=== PATIENT | male | born 2000 | race African-American/Black ===

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

== ENCOUNTER 2019-12-10 12:13 | Emergency (ER) | payer SELFPAY ==
[2019-12-10] MEDS ORDERED: cefTRIAXone\\ROCEPHIN 250 MG VIAL ONE (12:54)
[2019-12-10] MEDS ORDERED: Azithromycin 250 MG TAB ONE (12:54)
[2019-12-10] MEDS ORDERED: Lidocaine 1% (PF) 30 ML VIAL ONE (12:54)
[2019-12-10 13:43] LABS: Bilirubin Negative (Negative); Blood, Urine Negative (Negative); Clarity Clear (Clear); Glucose, Urine (Dipstick) Normal (Negative); Ketone, Urine Negative (Negative); Leukocyte 500 Leu/uL (Negative); Mucous/LPF Rare LPF (<2+); Nitrite Negative (Negative); Protein, Urine (Dipstick) 20 mg/dL (Neg-Trace); Squamous Epithelial 0-3 HPF (0-3); Urobilinogen 3 mg/dL (Less than 2); WBC/HPF Greater than 50 HPF (0-3); pH, Urine 6.5 (5.0-9.0)
[2019-12-10 13:44] LABS: Bacteria/HPF 1+ HPF (None Seen)
[2019-12-11 22:55] LABS: Chlam.trachomatis by PCR,Urine DETECTED (NotDetected)
== END 2019-12-10 13:59 | disposition home or self-care (01) ==
LOC: ERS 12:13
DX: A64 Unspecified sexually transmitted disease (principal); N39.0 Urinary tract infection, site not specified; F31.9 Bipolar disorder, unspecified
CPT/HCPCS: 81003; 81015; 87491; 87591; 96372; 99283; J0696; J2001

== ENCOUNTER 2022-06-02 02:52 | Inpatient (IN) | payer SELFPAY ==
[2022-06-02] MEDS ORDERED: Morphine 4 MG/ML VIAL ONE (03:11)
[2022-06-02] MEDS ORDERED: Dextrose 50% Abboject 50 ML SYRINGE SLOW IVP PRN (03:45)
[2022-06-02] MEDS ORDERED: Ondansetron PF 4 MG/2 ML Vial IVP PRN (03:45)
[2022-06-02] MEDS ORDERED: Dextrose 5% in Water 1,000 ML IV PRN (03:45)
[2022-06-02] MEDS ORDERED: TETANUS, DIPHTHERIA TOX,ADULT (TDVAX) 0.5 ML VIAL IM ONE (03:45)
[2022-06-02] MEDS ORDERED: Ondansetron ODT 4 MG TAB PO PRN (03:45)
[2022-06-02] MEDS ORDERED: Sodium Chloride 0.9% 1,000 ML IV SCH (03:45)
[2022-06-02 03:50] LABS: #Basophils 0.1 thou/uL (0.0-0.2); #Lymphocytes 0.9 thou/uL (1.20-3.40); #Monocytes 0.9 thou/uL (0.11-0.59); #Neutrophils 15.3 thou/uL (1.40-6.50); %Basophils 0.3 % (0.0-1.0); %Eosinophils 0.1 % (0.0-10.0); %Monocytes 5.2 % (0.0-10.0); %Neutrophils 89.3 % (42.0-75.0); Hemoglobin 14.9 g/dL (14.0-18.0); Mean Corpuscular HGB CONC 33.1 g/dL (32.0-36.0); Mean Corpuscular Hemoglobin 30.7 pg (27.0-31.0); Mean Corpuscular Volume 92.8 fl (78.0-98.0); Mean Platelet Volume 7.5 fL (7.4-10.4); Platelet Count 218 10x3/uL (130-400); RBC Distribution Width 11.3 % (11.5-14.5); Red Blood Cell (RBC) Count 4.85 mill/uL (4.70-6.10); White Blood Cell (WBC) Count 17.2 10x3/uL (4.8-10.8)
[2022-06-02] MEDS ORDERED: traMADol HCl 50 MG TAB PO PRN (03:51)
[2022-06-02 04:01] LABS: ALT (SGPT) 12 U/L (8-55); AST (SGOT) 24 U/L (5-34); Alkaline Phosphatase 70 U/L (40-110); Anion Gap 15 mmol/L (10-20); BUN (Urea Nitrogen) 13 mg/dL (8.9-20.6); Bilirubin, Total 0.3 mg/dL (0.2-1.2); Calc. Creatinine Clearance 0 mL/min (70-130); Calcium 8.8 mg/dL (7.8-10.44); Carbon Dioxide 21 mmol/L (22-29); Chloride 104 mmol/L (98-107); Estimated GFR 116; Glucose 118 mg/dL (70-105); Potassium 3.5 mmol/L (3.5-5.1); Sodium 136 mmol/L (136-145)
[2022-06-02 04:02] LABS: INR-International Normal Ratio 0.9
[2022-06-02 04:03] LABS: PTT 26.9 sec (22.9-36.1)
[2022-06-02 04:25] LABS: SARS-CoV-2 NAA Rapid Test Not Detected (NotDetected)
[2022-06-02] MEDS: Acetaminophen 500 MG TAB PO SCH ×3 (05:13→17:35)
[2022-06-02] MEDS: Ibuprofen 600 MG TAB PO SCH ×3 (05:13→17:34)
[2022-06-02] MEDS: Morphine 2 MG/ML VIAL SLOW IVP PRN ×2 (05:14→05:48)
[2022-06-02 05:41] VITALS: BMI 19.0
[2022-06-02] MEDS: traMADol HCl 50 MG TAB PO SCH ×3 (07:34→17:34)
[2022-06-02] MEDS ORDERED: CEFAZOLIN 1 GM VIAL SLOW IVP SCH (08:00)
[2022-06-02] MEDS ORDERED: Morphine 4 MG/ML VIAL SLOW IVP PRN (08:03)
[2022-06-02] MEDS ORDERED: Sodium Chloride 0.9% 100 ML ONE (08:04)
[2022-06-02] MEDS ORDERED: CEFAZOLIN 1 GM VIAL ONE (08:04)
[2022-06-02] MEDS ORDERED: Fentanyl 100 MCG/2 ML VIAL ONE (08:25)
[2022-06-02] MEDS ORDERED: Fentanyl 250 MCG/5 ML VIAL ONE (08:44)
[2022-06-02] MEDS ORDERED: Lidocaine 1% PF 5 ML VIAL ONE (08:56)
[2022-06-02] MEDS ORDERED: Ondansetron PF 4 MG/2 ML Vial ONE (08:56)
[2022-06-02] MEDS ORDERED: Dexamethasone 20 MG/5 ML VIAL ONE (08:56)
[2022-06-02] MEDS ORDERED: PHENYLEPHRINE-NS 100 MCG/ML 10 ML SYRINGE ONE (08:56)
[2022-06-02] MEDS ORDERED: PROPOFOL 200 MG/20 ML VIAL ONE (08:56)
[2022-06-02] MEDS ORDERED: HYDROmorphone 0.5 MG/0.5 ML SYRINGE ONE (09:01)
[2022-06-02] MEDS ORDERED: Ketamine 50 MG/ML (10ML VIAL) ONE (09:02)
[2022-06-02] MEDS ORDERED: Dexmedetomidine 200 MCG/2 ML VIAL ONE (09:02)
[2022-06-02] MEDS ORDERED: HYDROmorphone 2 MG/ML VIAL SLOW IVP PRN (09:53)
[2022-06-02] MEDS ORDERED: Ondansetron HCl/PF 4 MG/2 ML Vial IVP PRN (09:53)
[2022-06-02] MEDS ORDERED: Meperidine HCl/PF 25 MG/ML VIAL SLOW IVP PRN (09:53)
[2022-06-02] MEDS ORDERED: Meperidine HCl/PF 25 MG/ML VIAL ONE (10:50)
[2022-06-02] MEDS: Gabapentin 300 MG CAP PO SCH ×3 (12:55→20:53)
[2022-06-02] MEDS: Famotidine 20 MG TAB PO SCH ×2 (12:55→20:54)
[2022-06-02] MEDS: CEFAZOLIN 2 GM in Sodium Chloride 0.9% 100 ML IVPB SCH (16:27)
[2022-06-03] MEDS: Acetaminophen 500 MG TAB PO SCH ×5 (00:35→23:46)
[2022-06-03] MEDS: traMADol HCl 50 MG TAB PO SCH ×5 (00:35→23:46)
[2022-06-03] MEDS: Ibuprofen 600 MG TAB PO SCH ×2 (00:36→06:52)
[2022-06-03] MEDS: CEFAZOLIN 2 GM in Sodium Chloride 0.9% 100 ML IVPB SCH ×4 (00:37→23:45)
[2022-06-03 06:27] LABS: #Lymphocytes 1.5 thou/uL (1.20-3.40); #Monocytes 1.2 thou/uL (0.11-0.59); #Neutrophils 8.2 thou/uL (1.40-6.50); %Basophils 0.3 % (0.0-1.0); %Eosinophils 0.3 % (0.0-10.0); %Lymphocytes 13.8 % (21.0-51.0); %Monocytes 11.1 % (0.0-10.0); %Neutrophils 74.6 % (42.0-75.0); Hemoglobin 11.8 g/dL (14.0-18.0); Mean Corpuscular HGB CONC 32.6 g/dL (32.0-36.0); Mean Corpuscular Hemoglobin 30.4 pg (27.0-31.0); Mean Corpuscular Volume 93.2 fl (78.0-98.0); Mean Platelet Volume 7.3 fL (7.4-10.4); Platelet Count 183 10x3/uL (130-400); RBC Distribution Width 11.2 % (11.5-14.5)
[2022-06-03 06:36] LABS: Anion Gap 10 mmol/L (10-20); BUN (Urea Nitrogen) 9 mg/dL (8.9-20.6); Calc. Creatinine Clearance 112 mL/min (70-130); Calcium 8.8 mg/dL (7.8-10.44); Carbon Dioxide 26 mmol/L (22-29); Chloride 104 mmol/L (98-107); Estimated GFR 119; Glucose 106 mg/dL (70-105); Magnesium 2.1 mg/dL (1.6-2.6); Phosphorus 3.3 mg/dL (2.3-4.7); Potassium 4.1 mmol/L (3.5-5.1); Sodium 136 mmol/L (136-145)
[2022-06-03] MEDS: Famotidine 20 MG TAB PO SCH ×2 (08:58→20:41)
[2022-06-03] MEDS: Gabapentin 300 MG CAP PO SCH ×3 (08:58→20:40)
[2022-06-03] MEDS ORDERED: Ibuprofen 200 MG TAB PO PRN (09:07)
[2022-06-03 16:04] LABS: #Eosinphils 0.1 thou/uL (0.0-0.7); #Lymphocytes 1.5 thou/uL (1.20-3.40); #Monocytes 0.9 thou/uL (0.11-0.59); #Neutrophils 6.6 thou/uL (1.40-6.50); %Basophils 0.4 % (0.0-1.0); %Eosinophils 1.3 % (0.0-10.0); %Lymphocytes 16.7 % (21.0-51.0); %Monocytes 9.5 % (0.0-10.0); %Neutrophils 72.1 % (42.0-75.0); Mean Corpuscular Hemoglobin 33.3 pg (27.0-31.0); Mean Corpuscular Volume 95.1 fl (78.0-98.0); Mean Platelet Volume 6.9 fL (7.4-10.4); Platelet Count 147 10x3/uL (130-400); RBC Distribution Width 11.1 % (11.5-14.5); Red Blood Cell (RBC) Count 3.61 mill/uL (4.70-6.10); White Blood Cell (WBC) Count 9.2 10x3/uL (4.8-10.8)
[2022-06-04] MEDS: Acetaminophen 500 MG TAB PO SCH ×4 (05:43→23:37)
[2022-06-04] MEDS: traMADol HCl 50 MG TAB PO SCH ×4 (05:44→23:38)
[2022-06-04 06:10] LABS: #Eosinphils 0.1 thou/uL (0.0-0.7); #Lymphocytes 1.8 thou/uL (1.20-3.40); #Monocytes 0.8 thou/uL (0.11-0.59); #Neutrophils 5.5 thou/uL (1.40-6.50); %Basophils 0.5 % (0.0-1.0); %Eosinophils 1.8 % (0.0-10.0); %Lymphocytes 21.4 % (21.0-51.0); %Monocytes 9.4 % (0.0-10.0); %Neutrophils 66.9 % (42.0-75.0); Hemoglobin 11.2 g/dL (14.0-18.0); Mean Corpuscular HGB CONC 32.7 g/dL (32.0-36.0); Mean Corpuscular Hemoglobin 30.7 pg (27.0-31.0); Mean Corpuscular Volume 93.7 fl (78.0-98.0); Mean Platelet Volume 7.3 fL (7.4-10.4); Platelet Count 181 10x3/uL (130-400); Red Blood Cell (RBC) Count 3.67 mill/uL (4.70-6.10); White Blood Cell (WBC) Count 8.2 10x3/uL (4.8-10.8)
[2022-06-04 06:33] LABS: Anion Gap 9 mmol/L (10-20); BUN (Urea Nitrogen) 6 mg/dL (8.9-20.6); Calc. Creatinine Clearance 110 mL/min (70-130); Calcium 8.7 mg/dL (7.8-10.44); Carbon Dioxide 29 mmol/L (22-29); Chloride 101 mmol/L (98-107); Estimated GFR 116; Glucose 88 mg/dL (70-105); Magnesium 1.8 mg/dL (1.6-2.6); Phosphorus 2.7 mg/dL (2.3-4.7); Potassium 3.6 mmol/L (3.5-5.1); Sodium 135 mmol/L (136-145)
[2022-06-04] MEDS: CEFAZOLIN 2 GM in Sodium Chloride 0.9% 100 ML IVPB SCH (09:06)
[2022-06-04] MEDS: Gabapentin 300 MG CAP PO SCH ×3 (09:07→20:33)
[2022-06-04] MEDS: Famotidine 20 MG TAB PO SCH ×2 (09:07→20:34)
[2022-06-05] MEDS: Acetaminophen 500 MG TAB PO SCH ×2 (05:42→12:00)
[2022-06-05] MEDS: traMADol HCl 50 MG TAB PO SCH ×2 (05:43→11:59)
[2022-06-05] MEDS: Gabapentin 300 MG CAP PO SCH ×2 (09:35→15:07)
[2022-06-05] MEDS: Famotidine 20 MG TAB PO SCH (09:36)
[2022-06-05 11:38] VITALS: BP 117/71; TEMP 98.2
== END 2022-06-05 15:35 | disposition home or self-care (01) | DRG 494 ==
LOC: ERS 02:52 → SURG A 03:45 → OBSVTOIN 16:41
PROVIDERS: ADMIT Surgery; ATTEND Surgery
PROC: 0QSG06Z Reposition Right Tibia with Intramedullary Internal Fixation Device, Open Approach (ICD-10-PCS; principal; 2022-06-02)
DX: S82.251B Displaced comminuted fracture of shaft of right tibia, initial encounter for open fracture type I or II (principal); S82.451B Displaced comminuted fracture of shaft of right fibula, initial encounter for open fracture type I or II; Z20.822 Contact with and (suspected) exposure to COVID-19; W34.00XA Accidental discharge from unspecified firearms or gun, initial encounter
CPT/HCPCS: 36415; 80048; 80053; 83735; 84100; 85025; 85610; 85730; 86850; 86900; 86901; 96374; 96375; 96376; C1713; G0378; J0690; J1100; J1170; J1650; J2175; J2270; J2272; J2405; J2704; J3010; J3490; U0002

== ENCOUNTER 2023-05-05 11:26 | Emergency (ER) | payer SELFPAY, OTHER | END 2023-05-05 16:17 | disposition home or self-care (01) | LOC: ERS 11:26 | DX: S02.5XXA Fracture of tooth (traumatic), initial encounter for closed fracture (principal); W01.10XA Fall on same level from slipping, tripping and stumbling with subsequent striking against unspecified object, initial encounter; Y92.009 Unspecified place in unspecified non-institutional (private) residence as the place of occurrence of the external cause | CPT/HCPCS: 99283 ==

== ENCOUNTER 2024-12-25 13:21 | Emergency (ER) | payer SELFPAY ==
[2024-12-25] MEDS ORDERED: cefTRIAXone (ROCEPHIN) 500 MG VIAL ONE ×2 (15:55→16:04)
[2024-12-25] MEDS ORDERED: Azithromycin 250 MG TAB ONE (15:57)
[2024-12-25 16:28] LABS: CAUTI Indications for Culture Dysuria,urgency,freq; Glucose, Urine (Dipstick) Normal (Negative); Leukocyte 500 Leu/uL (Negative); Protein, Urine (Dipstick) Negative (Neg-Trace); Specific Gravity, Urine 1.025 (1.002-1.036); WBC/HPF Greater than 50 HPF (0-3); Yeast-Budding Rare HPF (None Seen)
[2024-12-25 16:29] LABS: Bacteria/HPF 1+ HPF (None Seen)
[2024-12-25 16:30] LABS: Urine Culture Reflex Yes Yes
[2024-12-26 03:49] LABS: Chlam.trachomatis by PCR,Urine Not Detected (NotDetected); GC N.gonorrhoeae PCR,UrineVOID DETECTED (NotDetected)
== END 2024-12-25 16:45 | disposition home or self-care (01) ==
LOC: ERS 13:21
DX: S40.262A Insect bite (nonvenomous) of left shoulder, initial encounter (principal); S80.862A Insect bite (nonvenomous), left lower leg, initial encounter; S80.861A Insect bite (nonvenomous), right lower leg, initial encounter; S90.562A Insect bite (nonvenomous), left ankle, initial encounter; S90.561A Insect bite (nonvenomous), right ankle, initial encounter; N34.2 Other urethritis; W57.XXXA Bitten or stung by nonvenomous insect and other nonvenomous arthropods, initial encounter
CPT/HCPCS: 81001; 87086; 87491; 87591; 96372; 99283; J0696